=== PATIENT | female | born 1980 | race Caucasian/White ===

== ENCOUNTER → 2018-11-10 08:57 | Outpatient (CLI) | payer MEDICARE, SELFPAY | PROVIDERS: Family Provider Family Medicine; PCP Family Medicine; Visit Provider Family Medicine | DX: Z12.4 Encounter for screening for malignant neoplasm of cervix (principal) ==

== ENCOUNTER → 2018-11-16 07:30 | Outpatient (CLI) | payer MEDICARE, SELFPAY ==
[2017-08-04 22:16] VITALS: BMI 34.0
== END ==
PROVIDERS: Family Provider Family Medicine; PCP Family Medicine; Referring Provider Family Medicine; Visit Provider Family Medicine
DX: Z20.9 Contact with and (suspected) exposure to unspecified communicable disease (principal); Z20.2 Contact with and (suspected) exposure to infections with a predominantly sexual mode of transmission; Z76.89 Persons encountering health services in other specified circumstances

== ENCOUNTER → 2019-11-09 10:23 | Outpatient (CLI) | payer MEDICARE, MEDICAID, SELFPAY ==
[2019-02-03 10:11] VITALS: BMI 45.9
[2019-11-09 11:02] LABS: Absolute Lymphocyte Count 1.73 X10^3/uL (0.83-4.51); Absolute Neutrophil Count 4.2 X10^3/uL (2.0-7.7); Basophil# 0.03 X10^3/uL; Basophil% 0.5 % (0-1); Eosinophil# 0.16 X10^3/uL; Eosinophils% 2.4 % (0-5); Hematocrit 42.4 % (37-47); Lymphocyte # 1.73 X10^3/ul (4.0); Lymphocyte % 26.3 % (19-41); Mean Corp Hgb Conc 30.7 g/dL (32-36); Mean Corpuscular Hgb 25.5 pg (27.0-32.0); Mean Corpuscular Volume 83.3 fL (81-99); Mean Platelet Vol. 11.4 fl (6.2-12.0); Monocyte# 0.47 X10^3/uL; Monocyte% 7.2 % (0-10); NRBC Flagged by Analyzer 0 % (0-5); Neutrophil # 4.16 X10^3/uL (2.7-7.7); Neutrophil % 63.3 % (47-70); Platelet Count 258 K/mm3 (150-450); RBC Distribution Width CV 15.3 % (11.6-14.6); RBC Distribution Width SD 46.4 fl (35.1-43.9); Red Blood Count 5.09 M/mm3 (4.2-5.4); White Blood Count 6.6 K/mm3 (4.4-11.0)
[2019-11-09 11:25] LABS: Vitamin B12 336 pg/mL (211-911); Vitamin D,25 Hydroxy 10.6 ng/mL (29.95-100.01)
[2019-11-09 11:28] LABS: AST(SGOT) 25 U/L (15-37); Alanine Aminotransfer ALT/SGPT 45 U/L (13-56); Albumin, Serum 3.8 g/dL (3.2-5.0); Alkaline Phosphatase 83 U/L (45-117); Anion Gap 5 (5-15); BUN 5 mg/dL (7-18); BUN/Creat Ratio 5.9 RATIO (10-20); Calcium,Total 8.7 mg/dL (8.5-10.1); Chloride 108 mmol/L (98-107); Cholesterol 197 mg/dL (200); Creatinine, Serum 0.84 mg/dL (0.55-1.02); EST Glomerular Filtration Rate 80 mL/min (>60); Est Glom Filt Rate - Afr Amer 97 mL/min (>60); Ferritin 13 ng/mL (8-252); Free T3 2.8 pg/mL (2.18-3.98); Globulin 3.8 g/dL (2.2-4.2); Glucose 107 mg/dL (74-106); High Density Lipoprotein 46 mg/dL; Iron 57 ug/dL (50-170); Potassium 3.8 mmol/L (3.5-5.1); Protein, Total 7.6 g/dL (6.4-8.2); Sodium Level 140 mmol/L (136-145); T4 Free Direct 0.75 ng/dL (0.76-1.46); Thyroid Stim Hormone (TSH) 0.65 uIU/mL (0.358-3.74); Triglycerides 79 mg/dL; Very Low Density Lipoprotein 16 mg/dL (5-40)
== END ==
PROVIDERS: PCP Family Medicine; Referring Provider Family Medicine; Visit Provider Family Medicine
DX: E78.5 Hyperlipidemia, unspecified (principal); R53.83 Other fatigue; E61.1 Iron deficiency; E55.9 Vitamin D deficiency, unspecified; G62.9 Polyneuropathy, unspecified; E53.8 Deficiency of other specified B group vitamins; Z51.81 Encounter for therapeutic drug level monitoring
CPT/HCPCS: 36415; 80053; 80061; 82306; 82607; 82728; 83540; 84439; 84443; 84481; 85025

== ENCOUNTER → 2020-05-22 09:34 | Outpatient (CLI) | payer MEDICARE, MEDICAID, SELFPAY ==
[2020-05-22 08:29] VITALS: BMI 45.9
[2020-05-22 10:35] LABS: Absolute Neutrophil Count 3.3 X10^3/uL (2.0-7.7); Basophil# 0.04 X10^3/uL; Basophil% 0.6 % (0-1); Eosinophil# 0.15 X10^3/uL; Eosinophils% 2.4 % (0-5); Hematocrit 39.3 % (37-47); Mean Corp Hgb Conc 30.5 g/dL (32-36); Mean Corpuscular Hgb 25.8 pg (27.0-32.0); Mean Corpuscular Volume 84.5 fL (81-99); Mean Platelet Vol. 11.9 fl (6.2-12.0); Monocyte# 0.42 X10^3/uL; Monocyte% 6.8 % (0-10); NRBC Flagged by Analyzer 0 % (0-5); Neutrophil # 3.29 X10^3/uL (2.7-7.7); Platelet Count 250 K/mm3 (150-450); RBC Distribution Width CV 15.3 % (11.6-14.6); RBC Distribution Width SD 46.5 fl (35.1-43.9); Red Blood Count 4.65 M/mm3 (4.2-5.4); White Blood Count 6.2 K/mm3 (4.4-11.0)
[2020-05-22 11:15] LABS: Hemoglobin A1c 5.3 % (3.8-5.6)
[2020-05-22 11:25] LABS: AST(SGOT) 11 U/L (15-37); Alanine Aminotransfer ALT/SGPT 19 U/L (13-56); Albumin, Serum 3.7 g/dL (3.2-5.0); Alkaline Phosphatase 84 U/L (45-117); Anion Gap 5 (5-15); BUN 11 mg/dL (7-18); BUN/Creat Ratio 14.8 RATIO (10-20); Calcium,Total 8.8 mg/dL (8.5-10.1); Chloride 109 mmol/L (98-107); Creatinine, Serum 0.74 mg/dL (0.55-1.02); EST Glomerular Filtration Rate 92 mL/min (>60); Est Glom Filt Rate - Afr Amer 112 mL/min (>60); Follicle Stimulating Hormone 6.9 mIU/mL; Globulin 3.6 g/dL (2.2-4.2); Glucose 92 mg/dL (74-106); Potassium 3.5 mmol/L (3.5-5.1); Protein, Total 7.3 g/dL (6.4-8.2); Sodium Level 142 mmol/L (136-145); Thyroid Stim Hormone (TSH) 2.18 uIU/mL (0.358-3.74)
[2020-05-30 18:16] LABS: HPV APTIMA, High Risk Positive (Negative)
== END ==
PROVIDERS: PCP Family Medicine; Referring Provider Obstetrics & Gynecology; Visit Provider Obstetrics & Gynecology
DX: N94.6 Dysmenorrhea, unspecified (principal); B37.3 Candidiasis of vulva and vagina; Z12.4 Encounter for screening for malignant neoplasm of cervix; N94.10 Unspecified dyspareunia
CPT/HCPCS: 36415; 80053; 82670; 83001; 83036; 84443; 85025; 87070; 87205; 87624; 88175; G0145

== ENCOUNTER → 2020-06-02 14:14 | Outpatient (CLI) | payer MEDICARE, MEDICAID, SELFPAY ==
[2020-05-22 08:29] VITALS: BMI 45.9
--- NOTE | 2020-06-02 14:15 | US_ITS ---
STUDY: ULTRASOUND OF THE FEMALE PELVIS - COMPLETE REASON FOR EXAM: Female, 40 years old. Dysmenorrhea TECHNIQUE: Transabdominal and Transvaginal TECHNICAL QUALITY: Adequate. COMPARISON: None. FINDINGS: The uterus is anteverted and is in a midline position. The uterus measures 10.4 x 4.1 x 1.0 cm. There is a 1.8 x 1.5 cm nabothian cyst in the cervix. The endometrium measures 10 mm in thickness, and is hyperechoic. There is no demonstrated endometrial mass. There is no demonstrated myometrial mass. The right ovary is visualized. The right ovary measures 3.4 x 3.4 x 2.3 cm. There are physiologic follicles in the right ovary. There is no right ovarian cyst or ovarian mass. There is no visualized right adnexal mass or complex lesion. There is normal vascularity. The left ovary is not visualized. There is no fluid in the cul-de-sac. US/Transvaginal Non- IMPRESSION: Thickened endometrium which is likely due to cyclic change. Nabothian cyst in the cervix. Normal right ovary with normal vascularity. Left ovary not visualized. Electronically Signed: Neymar Benitez, at 19:48 EDT Tel , Service support ,
--- NOTE | 2020-06-02 14:15 | US_ITS ---
STUDY: ULTRASOUND OF THE FEMALE PELVIS - COMPLETE REASON FOR EXAM: Female, 40 years old. Dysmenorrhea TECHNIQUE: Transabdominal and Transvaginal TECHNICAL QUALITY: Adequate. COMPARISON: None. FINDINGS: The uterus is anteverted and is in a midline position. The uterus measures 10.4 x 4.1 x 1.0 cm. There is a 1.8 x 1.5 cm nabothian cyst in the cervix. The endometrium measures 10 mm in thickness, and is hyperechoic. There is no demonstrated endometrial mass. There is no demonstrated myometrial mass. The right ovary is visualized. The right ovary measures 3.4 x 3.4 x 2.3 cm. There are physiologic follicles in the right ovary. There is no right ovarian cyst or ovarian mass. There is no visualized right adnexal mass or complex lesion. There is normal vascularity. The left ovary is not visualized. There is no fluid in the cul-de-sac. US/Pelvic (Non ) IMPRESSION: Thickened endometrium which is likely due to cyclic change. Nabothian cyst in the cervix. Normal right ovary with normal vascularity. Left ovary not visualized. Electronically Signed: Neymar Benitez, at 19:48 EDT Tel , Service support ,
== END ==
PROVIDERS: PCP Family Medicine; Referring Provider Obstetrics & Gynecology; Visit Provider Obstetrics & Gynecology
DX: N94.6 Dysmenorrhea, unspecified (principal); N94.10 Unspecified dyspareunia; N88.8 Other specified noninflammatory disorders of cervix uteri
CPT/HCPCS: 76830; 76856

== ENCOUNTER → 2020-06-06 | Outpatient (CLI) | payer MEDICARE, MEDICAID, SELFPAY ==
--- NOTE | 2020-06-06 | IMM_PTH ---
PATIENT: NITO WILDER LOC: [facility] U#:[id number] AGE/SX: 40/F ROOM: RE06/06/[address]: Dr. Tatiana Hairston MD : 1980 BED: DIS: 06/06/2020 SPEC #: [id number] RECD: 06/08/20 12:17 STATUS: ADAMARIS LUBNA #: [id number] TITA: 06/06/20 00:[address]: Tatiana Hairston DEPT: IMMUNOHISTOCHEMISTRY RECD BY: Carrie Grewal Tissues: A - Uterine cervix, NOS B - Endocervical Procedures: p16 (initial) KI-67 (add) PHYSICIAN & [place] [id number] SPECIMEN INFORMATION: Tissue Source: A - Cervical, B - ECC Clinical Info: HGSIL, abnormal uterine bleeding Specimen Number: [id number] A & B CPT code: 54320 x2, 77367 x2 METHODOLOGY: Deparaffinized sections of prefer/formalin-fixed tissue or PAP/DQ stained slides are incubated with monoclonal/polyclonal antibodies/oligonucleotide probes. Localization is made via biotin free immunoperoxidase method. Appropriate controls are performed and reacted as expected. Results on target cell population are indicated in the following table: RESULTS: ANTIBODY / CLONE RESULT Block A P16 (E6H4) positive, block staining Ki-67 (30-9) positive, moderate to high Block B P16 (E6H4) positive, block staining Ki-67 (30-9) positive, moderate to high These tests were developed and their performance characteristics determined by [facility]. They may not have been cleared or approved by the U.S. Food and Drug Administration. The FDA has determined that such clearance or approval is not necessary. The above immunohistochemical/dualISH markers are ordered and reviewed by the Pathologist. INTERPRETATION: A. Cervix, biopsy: Moderate to severe squamous dysplasia. B. ECC: Fragments of squamous epithelium with moderate to severe squamous dysplasia. SJ:donte 06/09/20
--- NOTE | 2020-06-06 | CER_PTH ---
PATIENT: NITO WILEDR LOC: [facility]#:[id number] AGE/SX: 40/F ROOM: RE06/06/[address]: Dr. Tatiana Hairston MD : 1980 BED: DIS: 06/06/2020 SPEC #: [id number] RECD: 06/06/20 16:39 STATUS: ADAMARIS CALVO #: [id number] TITA: 06/06/20 00:[address]: Tatiana Hairston DEPT: SURGICAL PATHOLOGY RECD BY: Ousmane Lyman Tissues: A - Uterine cervix, NOS B - Endocervical C - Endometrial cavity Procedures: Surgery Specimen Level IV HEADER OPERATION: Colposcopy, endometrial biopsy PRE-OP DIAGNOSIS: HGSIL, abnormal uterine bleeding TISSUE SUBMITTED: A - Cervical, B - ECC, C - Endometrial biopsy MICROSCOPIC DIAGNOSIS A. Cervical biopsy: Moderate to severe squamous dysplasia with HPV changes (HGSIL and NANDO II-III). Chronic inflammation. See comment. B. ECC: Fragment of squamous epithelium with moderate to severe squamous dysplasia with HPV changes (HGSIL and NANDO II-III). Fragments of benign endocervical mucosa with chronic inflammation and mucous. See comment. C. Endometrial biopsy: Secretory endometrium. Fragments of benign endocervical epithelium. SJ:rg 06/08/20 COMMENT A & B. Immunohistochemistry ([id number]) for surrogate HPV marker (p16) supports the above diagnosis. Case has been reviewed in consultation with Dr. Orellana who concurs with the above diagnosis. IDC:AM MICROSCOPIC DESCRIPTION Slides are reviewed. GROSS DESCRIPTION A - Received in fixative is one container labeled with the patient's name and designated cervical biopsy. The specimen consists of one irregular fragment of light peoples soft tissue that measures 0.3 x 0.3 x 0.1 cm. The specimen is totally submitted in one cassette. B - Received in fixative is one container labeled with the patient's name and designated ECC. The specimen consists of multiple irregular fragments of peoples-pink mucoid tissue that in aggregate measure 1.5 x 0.5 x 0.1 cm. The specimen is totally submitted in one cassette. C - Received in fixative is one container labeled with the patient's name and designated EMB. The specimen consists of multiple irregular fragments of peoples-pink soft tissue that in aggregate measure 2.5 x 1.5 x 0.2 cm. The specimen is totally submitted in one cassette. / SJ:rg 06/07/20 TC:5 CPT: 52645 x3
[2020-06-06 14:39] VITALS: BMI 48.4
== END | disposition home or self-care (01) ==
PROVIDERS: Visit Provider Obstetrics & Gynecology
DX: R87.613 High grade squamous intraepithelial lesion on cytologic smear of cervix (HGSIL) (principal); N93.9 Abnormal uterine and vaginal bleeding, unspecified
CPT/HCPCS: 88305; 88341; 88342

== ENCOUNTER 2020-09-12 05:16 | Day surgery (SDC) | payer MEDICARE, MEDICAID, SELFPAY ==
[2020-06-06 14:39] VITALS: BMI 48.4
[2020-08-28 08:41] VITALS: BMI 47.9
[2020-09-04 15:46] LABS: Hematocrit 40.3 % (37-47); Hemoglobin 12.2 g/dL (12.0-15.0); Mean Corp Hgb Conc 30.3 g/dL (32-36); Mean Corpuscular Hgb 25.6 pg (27.0-32.0); Mean Corpuscular Volume 84.5 fL (81-99); Mean Platelet Vol. 11.8 fl (6.2-12.0); Platelet Count 259 K/mm3 (150-450); RBC Distribution Width CV 14.5 % (11.6-14.6); RBC Distribution Width SD 44.1 fl (35.1-43.9); Red Blood Count 4.77 M/mm3 (4.2-5.4); White Blood Count 7.4 K/mm3 (4.4-11.0)
[2020-09-04 16:07] LABS: Magnesium 2.1 mg/dL (1.6-2.6)
[2020-09-12] VITALS (18 sets, daily range): BP systolic 106–151; BP diastolic 57–81; PULSE 71–100; RESP 16–18; TEMP 36.2–37.1; O2SAT 90–97; BMI 50.3
--- NOTE | 2020-09-12 | IMM_PTH ---
PATIENT: KELLY WILDER [place] [facility] [place][id number] AGE/SX: 40/F ROOM: RE09/12/[address]: Dr. Tatiana Hairston MD : 1980 BED: DIS: 09/13/2020 SPEC #: [id number] RECD: 09/13/20 13:54 STATUS: ADAMARIS REQ #: [id number] TITA: 09/12/20 00:[address]: Ttaiana Hairston DEPT: IMMUNOHISTOCHEMISTRY RECD BY: Carrie Grewal ENTERED: 09/13/20 13:55 SP TYPE: IMMUNO OTHR DR: MD Dr. Kelly Moss DO Tissues: Uterus, NOS Procedures: KI-67 (add) P16 (add) KI-67 (initial) PHYSICIAN & INSTITUTION [place] [id number] SPECIMEN INFORMATION: Tissue Source: Uterus Clinical Info: NANDO III, severe dysplasia, dysmenorrhea, dyspareunia Specimen Number: [id number] #5 & 8 CPT code: 56314, 85212 x3 METHODOLOGY: Deparaffinized sections of prefer/formalin-fixed tissue or PAP/DQ stained slides are incubated with monoclonal/polyclonal antibodies/oligonucleotide probes. Localization is made via biotin free immunoperoxidase method. Appropriate controls are performed and reacted as expected. Results on target cell population are indicated in the following table: RESULTS: ANTIBODY / CLONE RESULT Block 5 P16 (E6H4) positive, block staining Ki-67 (30-9) positive, high Block 8 P16 (E6H4) positive, block staining Ki-67 (30-9) positive, high These tests were developed and their performance characteristics determined by [facility]. They may not have been cleared or approved by the U.S. Food and Drug Administration. The FDA has determined that such clearance or approval is not necessary. The above immunohistochemical/dualISH markers are ordered and reviewed by the Pathologist. INTERPRETATION: Uterus, vaginal hysterectomy: Moderate to severe squamous dysplasia. SJ:donte 09/14/20
[2020-09-12 06:05] LABS: Internal QC Validated? YES +Cl - CLEAR BKGD; Pregnancy, Urine Negative Negative
[2020-09-12] MEDS: Acetaminophen 500 MG Tablet 1000 MG PO ×4 (06:22→23:41)
[2020-09-12] MEDS: Scopolamine 1mg/72hr Patch 1 PATCH TD (06:22)
[2020-09-12] MEDS: dexAMETHasone 10 MG/ML Vial 8 MG IV (06:23)
[2020-09-12] MEDS: Enoxaparin 40 MG/0.4 ML Syringe SC (06:23)
[2020-09-12] MEDS: Lactated Ringers 1,000 ML 40 ML IV (06:24)
[2020-09-12 06:31] LABS: Bedside Glucose 139 mg/dL (70-110)
--- NOTE | 2020-09-12 06:41 | SUR.PREOP ---
PT TOOK 300 GABAPENTIN AT HOME AT [address] EDMONDSON BEFORE GIVING 600 MG.
--- NOTE | 2020-09-12 07:25 | HP.PCM_ITS ---
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 may need PFPT (4) Mixed incontinence Status: Acute Comment: urogyn consult, no intervention at this time. (5) Recurrent candidiasis of vagina Status: Acute Comment: 6 months of diflucan treatment ordered. 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 Is patient in pain?: No Allergies naproxen Adverse Reaction (Verified 08/28/20 08:42) Upset Stomach Medications ALPRAZolam [Xanax] 0.5 mg PO DAILY 08/04/17 [History Confirmed 08/28/20] Quetiapine Fumarate [Seroquel] 50 mg PO QHS 08/04/17 [History Confirmed 08/28/20] cyclobenzaprine 10 mg tablet 10 mg PO TID PRN #30 tab 05/22/20 [Rx Confirmed 08/28/20] desogestrel 0.15 mg-ethinyl estradiol 0.03 mg tablet 1 tab PO QDAY #28 tab 05/22/20 [Rx Confirmed 08/28/20] gabapentin 400 mg capsule 400 mg PO BID 05/22/20 [History Confirmed 08/28/20] hydrocortisone 2.5 % topical ointment 1 applic TOPICAL BID #28.35 g 05/22/20 [Rx Confirmed 08/28/20] Post menopausal: No Patient : No : No [facility] Medical History Cervical cancer (Acute) HPV (human papilloma virus) infection (Acute) PTSD (post-traumatic stress disorder) (Acute) Recent surgical procedure on lower extremity (Acute) Surgical History H/O LEEP (Acute) Family History Grandfather Lung cancer Grandmother Stomach cancer Mother Cervical cancer Social History (Updated 08/28/20 @ 09:[address] 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 Date Name GA/Weeks Outcome Route Bth Weight Infant Gen [facility] FOB Unknown Safia Curry 09/27/00 Rolf Wilder 12/15/01 Daytonilia Jose 01/27/14 Angi ROS Const Constitutional: Denies fatigue, night sweats, weight gain or weight loss ENT ENT: Reports system reviewed and no additional complaints, except as docu, disequilibrium and dizziness Cardio Card: Denies chest pain Resp Resp: Denies cough or dyspnea GI GI: Reports as per HPI; denies constipation, nausea or vomiting : Reports as per HPI, urinary frequency, urinary incontinence (mixed), urinary urgency, vaginal discharge, vaginal dryness and vaginal itching; denies nipple discharge or vaginal odor Musc Musc: Denies joint pain, back pain or muscle weakness Skin Skin/Breast: Denies nipple discharge Neuro Neuro: Reports dizziness Psych Psych: Reports system reviewed and no additional complaints, except as docu Endo Endo: Denies cold intolerance, excessive sweating, heat intolerance or increased thirst Misael/Lymph Hematologic/Lymphatic: Denies easy bleeding, Denies easy bruising, Denies enlarged lymph nodes Exam Const General: cooperative, healthy appearing, comfortable, no acute distress, well developed Orientation: alert HENMT Head: normal to inspection, normocephalic Ears: hearing grossly normal bilaterally, external ears normal Nose: external nose normal, nares normal Face and sinus: normal facial exam Neck Neck: normal visual inspection, no lymphadenopathy Thyroid: thyroid normal Chest Chest palpation & inspection: normal inspection of the chest Resp Effort & Inspection: normal respiratory effort Auscultation: clear to auscultation bilaterally Cardio Rate: regular rate Rhythm: regular rhythm Heart Sounds: S1 normal, S2 normal GI Inspection: normal to inspection, non-distended Palpation: soft, no hepatosplenomegaly General: bladder normal to palpation External Female Exam: normal external appearance, normal appearance of the urethra Urethra: normal appearance of the urethra Speculum Exam - Vagina: normal appearance of the vagina, normal vaginal discharge Speculum Exam - Cervix: normal appearance of the cervix, nontender Bimanual Exam- Vagina & Uterus: bladder normal to palpation, No cervical tenderness Bimanual Exam- Adnexa, other: normal adnexae, adnexae mobile, no adnexal masses, pelvic support normal Pelvic Support: normal Musc Other: gross motor intact no deficits, full bilateral strength Skin General: no rashes or lesions noted Neuro General: alert, awake, moves all extremities, no focal motor deficits Motor: muscle tone normal throughout Extrem General: normal to inspection, no pedal edema Psych Appearance: grossly normal Mental Status: mental status grossly normal Affect: normal affect Speech and Movement: speech and movement normal Assessment & Plan Problems 1. 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 I have discussed with the patient the risks, benefits, and alternatives of the procedure which include but are not limited to risks of anesthesia, bleeding, infection, possible damage to bowel, bladder, or surrounding vasculature which could lead to additional surgery to evaluate any complications. Patient agrees to procedure and wishes to proceed. ACOG/uptodate references given for additional information regarding procedure. Coding Level of Care Code No Charge Diagnoses NANDO III (cervical intraepithelial neoplasia grade III) with severe dysplasia D06.9 UPDATE- I have seen the patient and performed any clinically relevant updates to the history and physical exam. Tatiana Hairston MD
[2020-09-12] MEDS: Gabapentin 300 MG Capsule PO (07:26)
[2020-09-12] MEDS: Cefazolin 2 GM in 0.9% Normal Saline 100 ML IV (07:30)
--- NOTE | 2020-09-12 07:30 | HYST_PTH ---
PATIENT: KELLY WILDER LOC: [facility] [place] U#:[id number] AGE/SX: 40/F ROOM: RE09/12/[address]: Dr. Tatiana Hairston MD : 1980 BED: DIS: 09/13/2020 SPEC #: [id number] RECD: 09/12/20 10:11 STATUS: ADAMARIS LUBNA #: [id number] TITA: 09/12/20 07:[address]: Tatiana Hairston DEPT: SURGICAL PATHOLOGY RECD BY: Roro Lam ENTERED: 09/12/20 11:49 SP TYPE: HYSTERECT OTHR DR: MD Dr. Kelly Moss DO Tissues: Uterus, NOS Procedures: Surgery Specimen Level V HEADER OPERATION: ERAS, vaginal hysterectomy, salpingectomy PRE-OP DIAGNOSIS: NANDO III with severe dysplasia; dysmenorrhea; dyspareunia; mixed incontinence; recurrent candidiasis of vagina TISSUE SUBMITTED: Uterus, partial right oophorectomy as per OR report MICROSCOPIC DIAGNOSIS Uterus, right ovary and right fallopian tube, vaginal hysterectomy, right partial salpingectomy and right oophorectomy: Cervix - mild, moderate and severe squamous dysplasia (HGSIL and NANDO I-III), see comment. Dysplastic changes also involving endocervical glands. Resection margins are free of dysplastic changes. Endometrium - early secretory endometrium. Myometrium - an intramural leiomyoma (1.5 cm in greatest dimension). - Focal adenomyosis. Right ovary - physiologic follicular and corpus luteal cysts. See comment. SJ:donte 09/13/20 COMMENT The dysplastic changes involve all four cervical quadrants. Immunohistochemistry ([id number]) for surrogate HPV marker (p16) supports the above diagnosis. Fallopian tube tissue is not identified in the specimen or in the container. Detached pieces of tissue consists of ovarian tissue with corpus luteum cyst. Please make reference to previous specimen ([id number]) cervical biopsy with diagnosis of moderate to severe squamous dysplasia with HPV changes and ECC with diagnosis of fragments of squamous epithelium with moderate to severe squamous dysplasia with HPV changes. MICROSCOPIC DESCRIPTION Slides are reviewed. GROSS DESCRIPTION Received in fixative is one container labeled with the patient's name and designated uterus, right fallopian tube and right ovary. The specimen consists of a hysterectomy specimen consisting of uterus with cervix, detached ovary identified as right ovary and detached pieces of soft tissue. Fallopian tube is not identified in the container or in the specimen. The uterus with cervix weighs 113 gm and measures 9.5 x 6 x 4 cm. The serosal surface is focally ragged. The ectocervical mucosa is unremarkable. The external os is circular in contour. The resection margin of cervix is inked black. The endocervical canal measures 2.5 cm in length and the endocervical mucosa is unremarkable. Sections of the cervix reveal multiple cysts filled with mucoid material. The endometrial cavity measures 5 cm in length and up to 3 cm in width. The endometrium is peoples, glistening without any mass lesions and measures 0.1 cm in thickness. Sections of the uterine wall reveal a peoples, nodular mass measuring 1.5 cm in greatest dimension. The uterine wall measures up to 2 cm in thickness. The right ovary is disrupted and measures 2.5 x 2 x 1.5 cm. Sections reveal a hemorrhagic cyst measuring 1.5 cm in greatest dimension. The two detached pieces of tissue measure in aggregate 3 x 1 x 0.2 cm. Noteman sections are submitted in 15 cassettes as follows: 1-8 - cervix like LEEP conization (1 & 2 - 12 to 3 o'clock, 3 & 4 - 3 to 6 o'clock, 5 & 6 - 6 to 9 o'clock, 7 & 8 - 9 to 12 o'clock), 9 & 10 - anterior uterine wall, 11 & 12 - posterior uterine wall, 12 - nodular mass, 14 - right ovary, 15 - detached pieces of tissue, entirely submitted. / FRANNY:donte 09/12/20 TC:5 CPT: 91961
--- NOTE | 2020-09-12 07:42 | PCM.OPRPT ---
Problem List (1) Mixed incontinence Status: Acute Comment: urogyn consult, no intervention at this time. (2) Stress incontinence Status: Acute Report of Operation Date of Procedure: 09/12/20 Pre-Operative Diagnosis: stress incontinence, mixed incontinence Post-Operative Diagnosis: same Surgery/Procedure Performed:: midurethral sling, cystoscopy with bilateral ureteral catheterization Type of Anesthesia:: General Estimated Blood Loss (mL): 250cc tota Description of Procedure: Patient is a 40-year-old female undergoing a vaginal hysterectomy and mid urethral sling insertion after being evaluated for incontinence. Informed consent was obtained. Patient was taken to the operating room placed on the operating room table. Anesthesia monitored the head, neck, airway, IV access and vital signs throughout the case. Once anesthesia was approval administered the patient was placed into dorsal lithotomy and Trendelenburg position was prepped and draped in usual sterile fashion. A Noonan catheter was inserted through the urethra. Dr. Hairston performed her portion of the case and turned the patient over to ms. The mid urethra was identified and injected submucosally with vasopressin for hydrostatic dissection and hemostatic control. A midline vertical 2 cm incision was made. Sharp and blunt dissection was performed on either side of the urethra with care being taken to avoid entrance into the vaginal mucosa or the urethra. At this time, the trochars were used to insert the Altis mid urethral sling into the obturator complexes bilaterally. The sling lay flat against the urethra in good position. The tensioning suture was cut. The incision was closed using running interlocking 2-0 Vicryl. The Noonan catheter was removed and a cystourethroscopy was performed under direct visualization through the urethra. The bladder mucosa in its entirety in addition to the urethral mucosa were visualized directly. There were no injuries, foreign body or areas of hemorrhage identified. At this time a 5 Turkish whistle-tip catheter was used to gently cannulate each ureteral orifice and inserted to 25 cm. There is no evidence of injury, obstruction to either ureter. At this time the cystoscope was removed and the Noonan catheter was replaced. The patient was then awakened and taken to the recovery room in good condition. There were no complications during this procedure. Grafts/Implants Used: Altis midurethral sling - Complications none - Admit VTE Documentation VTE Present on Admission: Yes VTE Mechan Device Prophylaxis: SCD's VTE Pharm Prophylaxis ordered?: Yes
[2020-09-12] MEDS: Vasopressin 20 UNITS/ML Vial (08:00)
[2020-09-12] MEDS: Lactated Ringers 1,000 ML 70 ML IV ×2 (09:30→13:19)
--- NOTE | 2020-09-12 09:33 | PCM.DC.URO ---
Discharge Diet: No Restrictions Discharge Activity: May not drive while taking narcotic pain medications., May Shower - No tub bathing, no hot tubs, no swimming, no sexual activity, no strenuous activity, no exercise, no lifting over 5 pounds, no vacuuming May resume sexual activity in: 6-8 weeks Call your doctor if your incision/area has: Continuous Slow Oozing, Sudden Increased Bleeding, Increased Pain/ Swelling, Increased Redness, Foul Smelling Discharge Call your doctor if you observe: Fever of 101 or Higher, Inability to urinate, Inability to have a bowel movement, Calf discomfort, Uncontrolled pain Allergies/Adverse Reactions: Allergies naproxen Adverse Reaction (Verified 09/12/20 05:39) Upset Stomach Medications to take at Discharge ALPRAZolam [Xanax] 0.5 mg PO DAILY 08/04/17 Quetiapine Fumarate [Seroquel] 50 mg PO QHS 08/04/17 gabapentin 400 mg capsule 400 mg PO BID 05/22/20 Cephalexin [Keflex] 500 mg PO Q12 3 Days #6 cap 09/12/20 The following prescriptions were given: Cephalexin [Keflex] 500 mg PO Q12 3 Days #6 cap Transmission Status: Pending to [id number] Primary Care Physician: Kelly Majano DO [Primary Care Provider] - Test Results: Test results from this visit will be discussed in further detail at your follow-up appointment, if applicable. Please Follow Up With: Mary Anne Aragon MD When: call office for appt Proposed Discharge Date: 09/13/20
--- NOTE | 2020-09-12 10:07 | OP.PCM_ITS ---
Problem List (1) NANDO III (cervical intraepithelial neoplasia grade III) with severe dysplasia Status: Acute Comment: recurrent recommend hysterectomy, TVH BS plan SDS (2) Dysmenorrhea Status: Acute Comment: start with OCP (3) Dyspareunia Status: Acute Comment: start with OCP, may be vulvar in origin also. may need PFPT (4) Mixed incontinence Status: Acute Comment: urogyn consult, no intervention at this time. (5) Recurrent candidiasis of vagina Status: Acute Comment: 6 months of diflucan treatment ordered. Report of Operation Date of Procedure: 09/12/20 Pre-Operative Diagnosis: aub NANDO III Post-Operative Diagnosis: same Surgery/Procedure Performed:: TVH RS partial right oophorectomy Description of Surgical Findings:: right large ovary with cysts, limited vaginal access due to morbid obesity, enlarged uterus with suspected adenomyosis, nl left tube and ovary. pelvic congestion. Type of Anesthesia:: General Special Medications: none Specimen's removed: uterus right tube and partial ovary Drains: ontiveros Estimated Blood Loss (mL): 200 Fluids Replaced: crystalloid Description of Procedure: . Patient was taken to the operating room and was placed under general anesthesia was prepped and draped in normal sterile fashion in the dorsal lithotomy position. Preoperative antibiotics and SCDs and Ontiveros catheter was placed inside the bladder. Weighted speculum was placed in the vagina and the anterior and posterior lip of the cervix was grasped with 2 Diogenes clamps and circumferentially injected with dilute vasopressin. A circumferential incision was made with a scalpel and the posterior cul-de-sac was entered into sharply and a longneck speculum was placed. The anterior cul-de-sac was also dissected down and entered into sharply and the uterosacral ligaments were clamped cut and suture ligated bilaterally followed by the cardinal ligaments which were Clamped cut and suture ligated bilaterally with 0 Monocryl. The uterus serially descended and progressive bites were taken bilaterally up to the level of the utero-ovarian ligament bilaterally which was clamped transected and double l igated with 0 Monocryl suture and 0 Vicryl free tie. The initial tie on the left utero-ovarian ligament was noted to be loose and therefore this was oversewn with several Monocryl and Vicryl stitches to obtain hemostasis. Due to the fallopian tube being a part of one of the hemostasis stitches it was not removed due to risk of bleeding. the right ovary was noted to be enlarged with a cyst which was opened and noted to be friable therefore part of the ovary was removed with a partial oophorectomy and right salpingectomy. Additional sutures were used to obtain hemostasis over the area of the right ovary and tube. Bovie was used for cautery excellent hemostasis was noted. Posterior peritoneum was reapproximated with 0 Vicryl. The vagina was closed with [id number] 0 Vicryl pop offs including the posterior and anterior peritoneum in the reapproximation. Excellent hemostasis was noted. All instruments removed from the vagina and then see additional operative report for additional operative information. Grafts/Implants Used: see jannie note - Complications none - Admit VTE Documentation VTE Present on Admission: No VTE Mechan Device Prophylaxis: SCD's VTE Pharm Prophylaxis ordered?: Yes Multi Select Codes - Urinary/Genital Urinary/Genital CPT Codes: 91992 TVH+BS/O <250gr uterus
--- NOTE | 2020-09-12 10:13 | PCM.DC.VHY ---
Discharge Diet: No Restrictions Discharge Activity: May not drive while taking narcotic pain medications., May Shower - No tub bathing, no hot tubs, no swimming, no sexual activity, no strenuous activity, no exercise, no lifting over 5 pounds, no vacuuming May resume sexual activity in: 6-8 weeks Call your doctor if your incision/area has: Continuous Slow Oozing, Sudden Increased Bleeding, Increased Pain/ Swelling, Increased Redness, Foul Smelling Discharge Call your doctor if you observe: Fever of 101 or Higher, Inability to urinate, Inability to have a bowel movement, Calf discomfort, Uncontrolled pain Allergies/Adverse Reactions: Allergies naproxen Adverse Reaction (Verified 09/12/20 05:39) Upset Stomach Medications to take at Discharge ALPRAZolam [Xanax] 0.5 mg PO DAILY 08/04/17 Quetiapine Fumarate [Seroquel] 50 mg PO QHS 08/04/17 gabapentin 400 mg capsule 400 mg PO BID 05/22/20 Cephalexin [Keflex] 500 mg PO Q12 3 Days #6 cap 09/12/20 Naproxen [Naprosyn] 250 - 500 mg PO Q8H PRN PRN #30 tab 09/12/20 Oxycodone HCl/Acetaminophen [Percocet 5-325] 1 - 2 tablet PO Q6H PRN PRN 7 Days #15 tablet 09/12/20 The following prescriptions were given: Cephalexin [Keflex] 500 mg PO Q12 3 Days #6 cap Transmission Status: Received by [id number] Naproxen [Naprosyn] 250 - 500 mg PO Q8H PRN PRN #30 tab PRN Reason: MILD PAIN Transmission Status: Pending to [facility] Oxycodone HCl/Acetaminophen [Percocet 5-325] 1 - 2 tablet PO Q6H PRN PRN 7 Days #15 tablet PRN Reason: Pain Transmission Status: Sent to [facility] Primary Care Physician: Kelly Majano DO [Primary Care Provider] - Test Results: Test results from this visit will be discussed in further detail at your follow-up appointment, if applicable. Please Follow Up With: Mary Anne Aragon MD When: call office for appt Proposed Discharge Date: 09/13/20
--- NOTE | 2020-09-12 13:09 | PCS.PANDOC ---
PANDEMIC DOCUMENTATION INITIATED: Date: Time:
[2020-09-12] MEDS: ALPRAZolam 0.5 MG Tablet PO (13:19)
[2020-09-12] MEDS: Docusate Sodium 100 MG Capsule PO ×2 (13:19→20:55)
[2020-09-12] MEDS: Ketorolac 30 MG/ML Syringe IV ×2 (13:19→23:40)
[2020-09-12] MEDS: Gabapentin 400 MG Capsule PO ×2 (13:19→20:54)
[2020-09-12] MEDS: 0.9% Saline Lock 10 ML Syringe IV ×3 (13:20→23:41)
[2020-09-12] MEDS: oxyCODONE 5 MG Tablet PO ×2 (15:01→18:59)
[2020-09-12 15:35] LABS: Absolute Neutrophil Count 8.3 X10^3/uL (2.0-7.7); Basophil# 0.01 X10^3/uL; Basophil% 0.1 % (0-1); Hematocrit 37.2 % (37-47); Hemoglobin 11.1 g/dL (12.0-15.0); Lymphocyte % 10.5 % (19-41); Mean Corp Hgb Conc 29.8 g/dL (32-36); Mean Corpuscular Hgb 25.1 pg (27.0-32.0); Mean Corpuscular Volume 84.2 fL (81-99); Mean Platelet Vol. 11.4 fl (6.2-12.0); Monocyte# 0.13 X10^3/uL; Monocyte% 1.4 % (0-10); NRBC Flagged by Analyzer 0 % (0-5); Neutrophil # 8.34 X10^3/uL (2.7-7.7); Neutrophil % 87.4 % (47-70); Platelet Count 253 K/mm3 (150-450); RBC Distribution Width CV 14.7 % (11.6-14.6); RBC Distribution Width SD 45.1 fl (35.1-43.9); Red Blood Count 4.42 M/mm3 (4.2-5.4); White Blood Count 9.5 K/mm3 (4.4-11.0)
[2020-09-12] MEDS: QUEtiapine 25 MG Tablet 50 MG PO (20:54)
[2020-09-13] MEDS: oxyCODONE 5 MG Tablet PO ×3 (03:30→14:00)
[2020-09-13] MEDS: Lactated Ringers 1,000 ML 70 ML IV (04:20)
[2020-09-13 04:48] VITALS: BP 101/52; PULSE 79; RESP 18; TEMP 36.7; O2SAT 94
[2020-09-13 05:39] LABS: Hematocrit 31.7 % (37-47); Hemoglobin 9.5 g/dL (12.0-15.0); Mean Corpuscular Hgb 25.3 pg (27.0-32.0); Mean Corpuscular Volume 84.5 fL (81-99); Mean Platelet Vol. 11.8 fl (6.2-12.0); Platelet Count 223 K/mm3 (150-450); RBC Distribution Width CV 14.8 % (11.6-14.6); RBC Distribution Width SD 45.9 fl (35.1-43.9); Red Blood Count 3.75 M/mm3 (4.2-5.4); White Blood Count 11.5 K/mm3 (4.4-11.0)
[2020-09-13] MEDS: Ketorolac 30 MG/ML Syringe IV ×2 (06:00→11:50)
[2020-09-13] MEDS: Acetaminophen 500 MG Tablet 1000 MG PO ×2 (06:30→14:00)
[2020-09-13 07:43] VITALS: O2SAT 91
--- NOTE | 2020-09-13 07:47 | PCM.PN.OB ---
Patient Problems: Active and Suspected Problems (Last Reviewed 08/28/20 @ 08:42 by Lucia Mendoza) Stress incontinence (Acute) NANDO III (cervical intraepithelial neoplasia grade III) with severe dysplasia (Acute) recurrent recommend hysterectomy, TVH BS plan SDS Mixed incontinence (Acute) urogyn consult, no intervention at this time. Recurrent candidiasis of vagina (Acute) 6 months of diflucan treatment ordered. Dyspareunia (Acute) start with OCP, may be vulvar in origin also. may need PFPT Dysmenorrhea (Acute) start with OCP Subjective: Pain controlled. Has been up to chair. Denies SOB, CP, fever, chills, calf pain. - Physical Exam Vitals/I&O's: Vital Signs Temp Pulse Resp BP Pulse Ox 98.1 F 79 18 101/52 L 94 09/13/20 04:48 09/13/20 04:48 09/13/20 04:48 09/13/20 04:48 09/13/20 04:48 Oxygen Flow Rate (L/min) 6 Oxygen Delivery Method Room Air Weight: 275 lb 2.19 oz Body Mass Index (BMI) 50.3 Intake and Output for Last 24 Hours 09/11/20 09/12/20 09/13/20 23:59 23:59 23:59 Intake Total 2726.17 / 2726.17 1900 / 1900 Output Total 2575 / 2575 1200 / 1200 Balance 151.17 / 151.17 700 / 700 General: Alert, Oriented x3, Cooperative Abdomen: Soft, Non-Distended, - - Appropriately tender. Microbiology Past 72 Hours 09/11/20 10:20 Interface Orders SARS-CoV-2 Antigen (Rapid) - Final Laboratory Results 09/12/20 15:21: WBC 9.5, RBC 4.42, Hgb 11.1 L, Hct 37.2, MCV 84.2, MCH 25.1 L, MCHC 29.8 L, RDW Std Deviation 45.1 H, RDW Coeff of Chau 14.7 H, Plt Count 253, MPV 11.4, Immature Gran % (Auto) 0.600, Neut % (Auto) 87.4 H, Lymph % (Auto) 10.5 L, Boyd % (Auto) 1.4, Eos % (Auto) 0.0, Baso % (Auto) 0.1, Absolute Neuts (auto) 8.3 H, Absolute Lymphs (auto) 1.00, Nucleated RBC % 0 09/13/20 05:05: WBC 11.5 H, RBC 3.75 L, Hgb 9.5 L, Hct 31.7 L, MCV 84.5, MCH 25.3 L, MCHC 30.0 L, RDW Std Deviation 45.9 H, RDW Coeff of Chau 14.8 H, Plt Count 223, MPV 11.8 Current Medications Acetaminophen (Acetaminophen 500 Mg Tablet) 1,000 mg PO Q6 [facility] Last Admin: 09/13/20 06:30 Dose: 1,000 mg Documented by: Alprazolam (Alprazolam 0.5 Mg Tablet) 0.5 mg PO DAILY [facility] Last Admin: 09/12/20 13:19 Dose: 0.5 mg Documented by: Docusate Sodium (Docusate Sodium 100 Mg Capsule) 100 mg PO BID [facility] Last Admin: 09/12/20 20:55 Dose: 100 mg Documented by: Enoxaparin Sodium (Enoxaparin 40 Mg/0.4 Ml Syringe) 40 mg SC DAILY [facility] Gabapentin (Gabapentin 400 Mg Capsule) 400 mg PO BID [facility] Last Admin: 09/12/20 20:54 Dose: 400 mg Documented by: Lactated Ringer's () 1,000 mls @ 70 mls/hr IV .[id number] [facility] Stop: 09/13/20 12:48 Last Admin: 09/13/20 04:20 Dose: 70 mls/hr Documented by: Sodium Chloride () 250 mls @ 15 mls/hr IV .[id number] PRN PRN Reason: Saline Flush Ketorolac Tromethamine (Ketorolac 30 Mg/Ml Syringe) 30 mg IV Q6 [facility] Stop: 09/13/20 18:01 Last Admin: 09/13/20 06:00 Dose: 30 mg Documented by: Magnesium Chloride (Magnesium Chloride 64 Mg Delay Rel.Tablet) 128 mg PO DAILY PRN PRN PRN Reason: Constipation Nutritional Formula (Lactose Free) (Ensure Enlive 120 Ml Liquid) 120 ml PO TIDCM [facility] Last Admin: 09/12/20 18:59 Dose: 120 ml Documented by: Ondansetron HCl (Ondansetron Odt 4 Mg Tablet) 4 mg PO Q6H PRN PRN PRN Reason: NAUSEA Oxycodone HCl (Oxycodone 5 Mg Tablet) 5 - 10 mg PO Q4H PRN PRN PRN Reason: Pain Score 4-10 Last Admin: 09/13/20 03:30 Dose: 10 mg Documented by: Quetiapine Fumarate (Quetiapine 25 Mg Tablet) 50 mg PO QHS [facility] Last Admin: 09/12/20 20:54 Dose: 50 mg Documented by: Sodium Chloride (0.9% Saline Lock 10 Ml Syringe) 10 - 40 ml IV UD PRN PRN Reason: SALINE FLUSH Last Admin: 09/12/20 23:41 Dose: 10 ml Documented by: Medical Necessity - Tobacco Use Smoking Status: Never smoker Tobacco Use: Non-smoker Assessment/Plan All Active Problems (Last Reviewed 08/28/20 @ 08:42 by Lucia Mendoza) Stress incontinence (Acute) 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 See Dr Aragon's note and orders. Plan home today
--- NOTE | 2020-09-13 07:53 | PCM.PN.BLA ---
Progress Note Awake. Feeling sore but no other complaints. Is ordering breakfast. Vitals are good. Urine clear A/P POD#1 sling, hysterectomy Noonan out Trial of void Home later today STROKE Vital Signs/Narrative: Vital Signs Temp Pulse Resp BP Pulse Ox 09/13/20 04:48 98.1 F 79 18 101/52 L 94
[2020-09-13 09:41] VITALS: BP 127/54; PULSE 93; RESP 18; TEMP 36.7; O2SAT 95
[2020-09-13] MEDS: Enoxaparin 40 MG/0.4 ML Syringe SC (09:51)
[2020-09-13] MEDS: Docusate Sodium 100 MG Capsule PO (09:52)
[2020-09-13] MEDS: Gabapentin 400 MG Capsule PO (09:52)
[2020-09-13] MEDS: ALPRAZolam 0.5 MG Tablet PO (09:52)
[2020-09-13 14:02] VITALS: BP 108/40; PULSE 90; RESP 16; TEMP 36.8; O2SAT 94
== END 2020-09-13 15:55 | disposition home or self-care (01) ==
LOC: SDC 05:17 → AC 05:18 → MS3 09-13 12:39
PROVIDERS: Anesthesiology; Urology; PCP Family Medicine; Referring Provider Obstetrics & Gynecology; Visit Provider Obstetrics & Gynecology
PROC: (CPT 58260; principal; 2020-09-12 07:10)
PROC: 0TJB8ZZ Inspection of Bladder, Via Natural or Artificial Opening Endoscopic (ICD-10-PCS; CPT 57288; 2020-09-12 07:10)
DX: D06.9 Carcinoma in situ of cervix, unspecified (principal); N39.46 Mixed incontinence; D25.1 Intramural leiomyoma of uterus; N80.0 Endometriosis of uterus; N83.11 Corpus luteum cyst of right ovary; R35.1 Nocturia; B37.3 Candidiasis of vulva and vagina; Z20.828 Contact with and (suspected) exposure to other viral communicable diseases; F32.9 Major depressive disorder, single episode, unspecified; F41.9 Anxiety disorder, unspecified; E66.01 Morbid (severe) obesity due to excess calories; Z68.43 Body mass index [BMI] 50.0-59.9, adult; Z79.899 Other long term (current) drug therapy
CPT/HCPCS: 00944; 57288; 58262; 36415; 81025; 82962; 83735; 85025; 85027; 86850; 86900; 86901; 87426; 88307; 88341; 88342; C9803; J7120; A4216; C1758; J2405

== ENCOUNTER → 2021-01-01 13:17 | Outpatient (CLI) | payer MEDICARE, SELFPAY ==
[2020-09-12 06:25] VITALS: BMI 50.3
--- NOTE | 2021-01-01 13:24 | RAD_ITS ---
STUDY: X-RAY - RIGHT ANKLE REASON FOR EXAM: Female, 40 years old. ANKLE PAIN TECHNIQUE: 3 view(s) of the ankle. COMPARISON: None. FINDINGS: Normal visualized distal tibia and fibula. Normal medial and lateral malleoli. Normal tibiotalar articulation and ankle mortise. Normal visualized talus and calcaneus. The visualized subtalar, talonavicular, calcaneocuboid and tarsal articulations are normal. The soft tissue structures are unremarkable. RAD/Ankle min 3 Views IMPRESSION: Normal x-ray examination of the ankle. Electronically Signed: Josué Monae MD (Brooks) at 14:06 EDT , Service support ,
--- NOTE | 2021-01-01 13:24 | RAD_ITS ---
STUDY: X-RAY - RIGHT FOOT CLINICAL: Female, 40 years old. L FOOT PAIN TECHNIQUE: 3 view(s) of the foot. COMPARISON: None. FINDINGS: There is a plantar calcaneal spur. Normal visualized subtalar, talonavicular, calcaneocuboid, tarsal and tarsometatarsal articulations. Normal metatarsi. Normal metatarsophalangeal joint of the great toe. Normal tibial and fibular sesamoid bones. Normal interphalangeal joint of the great toe. Normal phalanges of the great toe. Normal second through fifth metatarsophalangeal joints. Normal interphalangeal joints and phalanges of the lesser toes. The soft tissue structures are unremarkable. RAD/Foot min 3 Views IMPRESSION: No fracture or erosive process. Electronically Signed: Josué Monae MD (Brooks) at 9:11 EDT , Service support ,
== END ==
PROVIDERS: PCP Family Medicine; Referring Provider Family Medicine; Visit Provider Family Medicine
DX: M79.672 Pain in left foot (principal); M25.572 Pain in left ankle and joints of left foot
CPT/HCPCS: 73610; 73630

== ENCOUNTER 2021-10-15 13:11 | Outpatient (CLI) | payer MEDICARE, MEDICAID, SELFPAY ==
[2021-10-15 13:33] LABS: Absolute Lymphocyte Count 1.52 X10^3/uL (0.83-4.51); Basophil# 0.01 X10^3/uL; Basophil% 0.2 % (0-1); Eosinophil# 0.18 X10^3/uL; Eosinophils% 3.5 % (0-5); Hematocrit 40.4 % (37-47); Hemoglobin 12.7 g/dL (12.0-15.0); Lymphocyte # 1.52 X10^3/ul (0.83-4.51); Lymphocyte % 29.9 % (19-41); Mean Corp Hgb Conc 31.4 g/dL (32-36); Mean Corpuscular Volume 82.8 fL (81-99); Mean Platelet Vol. 11.7 fl (6.2-12.0); Monocyte# 0.37 X10^3/uL; Monocyte% 7.3 % (0-10); NRBC Flagged by Analyzer 0 % (0-5); Neutrophil # 2.99 X10^3/uL (2.7-7.7); Neutrophil % 58.7 % (47-70); Platelet Count 219 K/mm3 (150-450); RBC Distribution Width SD 44.9 fl (35.1-43.9); Red Blood Count 4.88 M/mm3 (4.2-5.4); White Blood Count 5.1 K/mm3 (4.4-11.0)
[2021-10-15 13:58] LABS: ALB/GLOB Ratio 1.1 RATIO (0.9-2.4); AST(SGOT) 17 U/L (15-37); Alanine Aminotransfer ALT/SGPT 33 U/L (13-56); Albumin, Serum 3.9 g/dL (3.2-5.0); Alkaline Phosphatase 95 U/L (45-117); Anion Gap 6 (5-15); BUN 9 mg/dL (7-18); BUN/Creat Ratio 11.2 RATIO (10-20); Calcium,Total 8.6 mg/dL (8.5-10.1); Chloride 110 mmol/L (98-107); Cholesterol 198 mg/dL (200); EST Glomerular Filtration Rate 84 mL/min (>60); Est Glom Filt Rate - Afr Amer 102 mL/min (>60); Globulin 3.4 g/dL (2.2-4.2); Glucose 91 mg/dL (74-106); High Density Lipoprotein 38 mg/dL; Potassium 3.7 mmol/L (3.5-5.1); Protein, Total 7.3 g/dL (6.4-8.2); Sodium Level 142 mmol/L (136-145); Triglycerides 127 mg/dL; Very Low Density Lipoprotein 25 mg/dL (5-40)
[2021-10-15 14:04] LABS: Vitamin D,25 Hydroxy 22.8 ng/mL
== END 2021-10-15 23:59 | disposition short-term general hospital (02) ==
LOC: PAVLAB 13:14
PROVIDERS: PCP Family Medicine; Referring Provider Family Medicine; Visit Provider Family Medicine
DX: E78.5 Hyperlipidemia, unspecified (principal); D64.9 Anemia, unspecified; E55.9 Vitamin D deficiency, unspecified; Z51.81 Encounter for therapeutic drug level monitoring
CPT/HCPCS: 36415; 80053; 80061; 82306; 85025

== ENCOUNTER 2022-05-17 08:10 | Day surgery (SDC) | payer MEDICARE, MEDICAID, SELFPAY ==
[2022-05-17] VITALS (7 sets, daily range): BP systolic 103–130; BP diastolic 66–81; PULSE 66–73; RESP 16; TEMP 36.4–36.5; O2SAT 95–100; BMI 49.1
[2022-05-17] MEDS: Lactated Ringers 1,000 ML 15 ML IV (08:45)
--- NOTE | 2022-05-17 09:24 | PCM.HP.BLA ---
History and Physical Date of Admission: 05/17/22 Intake Vital Signs ? 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 Is patient in pain?: Yes Allergies naproxen Adverse Reaction (Verified 04/29/22 12:45) Upset Stomach Medications gabapentin 400 mg capsule 400 mg PO BID 05/22/20 [History Confirmed 04/29/22] alprazolam 0.5 mg tablet 1 mg PO DAILY PRN 04/29/22 [History Confirmed 04/29/22] buspirone 5 mg tablet 5 mg PO BID 04/29/22 [History Confirmed 04/29/22] citalopram 20 mg tablet 40 mg PO DAILY 04/29/22 [History Confirmed 04/29/22] cyclobenzaprine 10 mg tablet 5 mg PO TID PRN muscle spasm 04/29/22 [History] ergocalciferol (vitamin D2) 1,250 mcg (50,000 unit) capsule 1,250 mcg PO 2XW 04/29/22 [History Confirmed 04/29/22] ibuprofen 800 mg tablet 800 mg PO Q6H 04/29/22 [History Confirmed 04/29/22] omeprazole 40 mg capsule,delayed release 40 mg PO DAILY #60 caps 04/29/22 [Rx Confirmed 04/29/22] quetiapine 50 mg tablet 75 mg PO QHS 04/29/22 [History Confirmed 04/29/22] sucralfate 1 gram tablet (Carafate) 1 g PO QACHS #90 tabs 04/29/22 [Rx Confirmed 04/29/22] Is last menstrual period known: No Post menopausal: No Patient : No PFSH Medical History?(Updated 04/29/22 @ 14:[address] Omar Witt MD) Back pain Cervical cancer HPV (human papilloma virus) infection PTSD (post-traumatic stress disorder) Recent surgical procedure on lower extremity Sleep apnea Surgical History?(Updated 09/14/20 @ 11:55 by Gisselle Martini) H/O LEEP H/O oophorectomy History of right salpingo-oophorectomy History of total vaginal hysterectomy (TVH) Family History?(Updated 04/29/22 @ 12:45 by Jing Martinez) Grandfather Lung cancer Cancer ?? ? stomachGrandmother Stomach cancerMother Cervical cancer Hypertension Social History?(Updated 08/28/20 @ 09:[address] Tatiana Hairston MD) adopted:? No household members:? significant other number of children:? 4 current occupational status:? unemployed sexually active:? Yes Smoking Status:? Never smoker alcohol intake:? current alcohol intake frequency: a few times a month substance use type:? does not use what type of physical activity do you participate in:? none seatbelt use:? always do you feel safe at home:? Yes additional social history:? kobe Singh - works through [employer] service Female Reproductive History Menstrual Ab spontaneous: 1 HPI HPI HPI: NITO WILDER, is a 41 F who presents to the office today for rectal bleeding.? The patient reports she is having bright red blood 4-5 times per day.? She also reports she has not had a solid bowel movement in a few months.? She says she has diarrhea a few times a day and mixed with this is bright red blood.? She says she is also having occasional nausea and vomiting.? She also describes left lower quadrant pain. ROS General General: Yes fatigue; No weight change HEENT HEENT: No difficulty swallowing Endo Endocrine: No thyroid disease Musc Musculoskeletal: Yes back problems; No arthritis Cardio Cardiovascular: No pacemaker, heart disease, atrial fibrillation, high blood pressure, heart attack, heart stent, palpitations or chest pain Psych Psychiatric: Yes depression and anxiety Resp Respiratory: Yes shortness of breath, Yes sleep apnea, No cough, No COPD, No asthma and No emphysema Gastro Gastrointestinal: Yes abdominal pain, Yes nausea or vomiting, Yes diarrhea, Yes constipation, Yes blood in stool, Yes acid reflux, No hemorrhoids, No ulcers, No gallbladder problem and No black,tarry stools Misael Hematologic: No blood thinners Exam Const Orientation: alert and oriented x3 HENMT Head: normal to inspection Neck Neck: normal visual inspection and full ROM Chest Chest palpation & inspection: normal inspection of the chest Resp Effort & Inspection: normal respiratory effort Auscultation: clear to auscultation bilaterally Cardio Rate: regular rate Rhythm: regular rhythm GI Inspection: non-distended Palpation: soft and nontender Skin General: no rashes or lesions noted Neuro General: patient alert and patient oriented x3 Extrem General: full ROM Psych Appearance: grossly normal Mental Status: mental status grossly normal Assessment and Plan Assessment and Plan (1) Blood in stool: ?Status:?Acute ?Plan: Patient is having bright red blood in her stool.? I recommend that she have an EGD and colonoscopy and I discussed these with her.? I will also start her on a PPI and Carafate to see if this helps. I explained endoscopy in detail to the patient.? I explained the risks including but not limited to stroke or heart attack with anesthesia, perforation of the GI tract, bleeding, infection.? I explained that any of these could necessitate further emergency surgery.? The patient understands and all questions were answered sufficiently.? The patient wishes to proceed with procedure. Omar Witt MD Pager: [facility] [address] [place] [address] [address] [place] [address] Office: I have re-examined the patient. There are no clinical changes since date of exam.
--- NOTE | 2022-05-17 10:07 | OP.EGD_ITS ---
Patient Name: Kelly Garcia Procedure Date: 05/17/2022 9:32 AM Date of : 1980 Age: 42 Procedure: Upper GI endoscopy Indications: Epigastric abdominal pain, Suspected gastro-esophageal reflux disease Providers: Omar Witt MD Referring MD: Kelly Majano Medicines: Monitored Anesthesia Care Patient Profile: This is a 42 year old female. Refer to note in patient chart for documentation of history and physical. Complications: No immediate complications. Procedure: Pre-Anesthesia Assessment: - Prior to the procedure, a History and Physical was performed, and patient medications and allergies were reviewed. The patient's tolerance of previous anesthesia was also reviewed. The risks and benefits of the procedure and the sedation options and risks were discussed with the patient. All questions were answered, and informed consent was obtained. Prior Anticoagulants: The patient has taken no previous anticoagulant or antiplatelet agents. After reviewing the risks and benefits, the patient was deemed in satisfactory condition to undergo the procedure. After obtaining informed consent, the endoscope was passed under direct vision. Throughout the procedure, the patient's blood pressure, pulse, and oxygen saturations were monitored continuously. The gastroscope was introduced through the mouth, and advanced to the third part of duodenum. The upper GI endoscopy was accomplished without difficulty. The patient tolerated the procedure well. Scope In: 9:40:54 AM Scope Out: 9:42:04 AM Total Procedure Duration Time 0 hours 1 minute 10 seconds Findings: The esophagus was normal. The stomach was normal. The examined duodenum was normal. Impression: - Normal esophagus. - Normal stomach. - Normal examined duodenum. - No specimens collected. Recommendation: - Discharge patient to home. - Resume previous diet. - Continue present medications. Procedure Code(s): --- Professional --- 21839, Esophagogastroduodenoscopy, flexible, transoral; diagnostic, including collection of specimen(s) by brushing or washing, when performed (separate procedure) Diagnosis Code(s): --- Professional --- R10.13, Epigastric pain CPT copyright 2017 [employer]. All rights reserved. The codes documented in this report are preliminary and upon property management coordinator review may be revised to meet current compliance requirements. Omar Witt MD 05/17/2022 10:07:08 AM This report has been signed electronically. Number of Addenda: 0 Note Initiated On: 05/17/2022 9:32 AM
--- NOTE | 2022-05-17 10:08 | OP.CCLET_ITS ---
05/17/2022 Kelly Majano [address] [place] [address] Re : Upper GI endoscopy procedure for Kelly Garcia Dear Dr. Majano This procedure was performed on Tuesday, May 17, 2022. My impressions and recommendations are as follows: Impressions : - Normal esophagus. - Normal stomach. - Normal examined duodenum. - No specimens collected. Recommendations : - Discharge patient to home. - Resume previous diet. - Continue present medications. My findings are described in the full procedure note, which is enclosed. If I can be of further assistance, please feel free to contact me at Doctor phone number(s): , Work: . Sincerely, Omar Witt MD 05/17/2022 10:07:08 AM This report has been signed electronically.
--- NOTE | 2022-05-17 10:11 | OP.CCLET_ITS ---
05/17/2022 Kelly Majano [address] [place] [address] Re : Colonoscopy procedure for Kelly Garcia Dear Dr. Majano This procedure was performed on Tuesday, May 17, 2022. My impressions and recommendations are as follows: Impressions : - The entire examined colon is normal on direct and retroflexion views. - No specimens collected. Recommendations : - Discharge patient to home. - Resume previous diet. - Continue present medications. - Repeat colonoscopy in 10 years for screening purposes. My findings are described in the full procedure note, which is enclosed. If I can be of further assistance, please feel free to contact me at Doctor phone number(s): , Work: . Sincerely, Omar Witt MD 05/17/2022 10:10:36 AM This report has been signed electronically.
--- NOTE | 2022-05-17 10:11 | OP.COLON_ITS ---
Patient Name: Kelly Garcia Procedure Date: 05/17/2022 9:42 AM Date of : 1980 Age: 42 Procedure: Colonoscopy Indications: Rectal bleeding Providers: Omar Witt MD Referring MD: Kelly Majano Medicines: Monitored Anesthesia Care Patient Profile: This is a 42 year old female. Refer to note in patient chart for documentation of history and physical. Last Colonoscopy: none. The patient's first colonoscopy is today. Complications: No immediate complications. Procedure: Pre-Anesthesia Assessment: - Prior to the procedure, a History and Physical was performed, and patient medications and allergies were reviewed. The patient's tolerance of previous anesthesia was also reviewed. The risks and benefits of the procedure and the sedation options and risks were discussed with the patient. All questions were answered, and informed consent was obtained. Prior Anticoagulants: The patient has taken no previous anticoagulant or antiplatelet agents. After reviewing the risks and benefits, the patient was deemed in satisfactory condition to undergo the procedure. After I obtained informed consent, the scope was passed under direct vision. Throughout the procedure, the patient's blood pressure, pulse, and oxygen saturations were monitored continuously. The colonoscope was introduced through the anus and advanced to the cecum, identified by appendiceal orifice and ileocecal valve. The colonoscopy was performed without difficulty. The patient tolerated the procedure well. The quality of the bowel preparation was good. Scope In: 9:44:38 AM Scope Withdrawal Time 0 hours 5 minutes 3 seconds Scope Out: 9:57:08 AM Total Procedure Duration Time 0 hours 12 minutes 30 seconds Findings: The entire examined colon appeared normal on direct and retroflexion views. Impression: - The entire examined colon is normal on direct and retroflexion views. - No specimens collected. Recommendation: - Discharge patient to home. - Resume previous diet. - Continue present medications. - Repeat colonoscopy in 10 years for screening purposes. Procedure Code(s): --- Professional --- 31350, Colonoscopy, flexible; diagnostic, including collection of specimen(s) by brushing or washing, when performed (separate procedure) Diagnosis Code(s): --- Professional --- K62.5, Hemorrhage of anus and rectum CPT copyright 2017 [employer]. All rights reserved. The codes documented in this report are preliminary and upon sack keeper review may be revised to meet current compliance requirements. Omar Witt MD 05/17/2022 10:10:36 AM This report has been signed electronically. Number of Addenda: 0 Note Initiated On: 05/17/2022 9:42 AM
== END 2022-05-17 10:46 | disposition home or self-care (01) ==
LOC: EN 08:13 → AC 08:15
PROVIDERS: PCP Family Medicine; Referring Provider Family Medicine; Visit Provider Surgery
PROC: 0DJD8ZZ Inspection of Lower Intestinal Tract, Via Natural or Artificial Opening Endoscopic (ICD-10-PCS; CPT 45378; principal; 2022-05-17 09:40)
DX: K62.5 Hemorrhage of anus and rectum (principal); K21.9 Gastro-esophageal reflux disease without esophagitis; R19.7 Diarrhea, unspecified; R11.2 Nausea with vomiting, unspecified; R10.32 Left lower quadrant pain; Z79.899 Other long term (current) drug therapy
CPT/HCPCS: 45378; 43235; J7120; J2405

== ENCOUNTER → 2022-08-26 | Outpatient (CLI) | payer MEDICARE, SELFPAY ==
[2022-08-26 17:23] LABS: Absolute Lymphocyte Count 2.66 X10^3/uL (0.83-4.51); Absolute Neutrophil Count 3.5 X10^3/uL (2.0-7.7); Basophil# 0.03 X10^3/uL; Basophil% 0.4 % (0-1); Eosinophil# 0.16 X10^3/uL; Eosinophils% 2.4 % (0-5); Hematocrit 39.6 % (37-47); Hemoglobin 12.9 g/dL (12.0-15.0); Lymphocyte # 2.66 X10^3/ul (0.83-4.51); Lymphocyte % 39.5 % (19-41); Mean Corp Hgb Conc 32.6 g/dL (32-36); Mean Corpuscular Hgb 27.1 pg (27.0-32.0); Mean Corpuscular Volume 83.2 fL (81-99); Mean Platelet Vol. 12.2 fl (6.2-12.0); Monocyte# 0.41 X10^3/uL; Monocyte% 6.1 % (0-10); NRBC Flagged by Analyzer 0 % (0-5); Neutrophil # 3.45 X10^3/uL (2.7-7.7); Neutrophil % 51.3 % (47-70); Platelet Count 244 K/mm3 (150-450); RBC Distribution Width CV 14.3 % (11.6-14.6); RBC Distribution Width SD 42.9 fl (35.1-43.9); Red Blood Count 4.76 M/mm3 (4.2-5.4); White Blood Count 6.7 K/mm3 (4.4-11.0)
[2022-08-26 17:51] LABS: Burr Cells 6.7; Erythrocyte Sedimentation Rate 25 mm/hr (0-30)
[2022-08-26 18:02] LABS: ALB/GLOB Ratio 1.1 RATIO (0.9-2.4); AST(SGOT) 19 U/L (15-37); Alanine Aminotransfer ALT/SGPT 44 U/L (13-56); Albumin, Serum 3.6 g/dL (3.2-5.0); Alkaline Phosphatase 91 U/L (45-117); Anion Gap 6 (5-15); BUN 7 mg/dL (7-18); BUN/Creat Ratio 9.5 RATIO (10-20); CRP 9.98 mg/L (0.0-3.0); Calcium,Total 8.8 mg/dL (8.5-10.1); Chloride 106 mmol/L (98-107); Creatinine, Serum 0.73 mg/dL (0.55-1.02); EST Glomerular Filtration Rate 93 mL/min (>60); Est Glom Filt Rate - Afr Amer 112 mL/min (>60); Globulin 3.4 g/dL (2.2-4.2); Glucose 86 mg/dL (74-106); LDH 214 U/L (84-246); Potassium 3.8 mmol/L (3.5-5.1); Sodium Level 139 mmol/L (136-145)
[2022-08-28 15:08] LABS: Anti-Centromere B Ab <0.2 AI (0.0-0.9); Anti-Chromatin <0.2 AI (0.0-0.9); Anti-Jo <0.2 AI (0.0-0.9); Anti-Scleroderma-70 AB <0.2 AI (0.0-0.9); Endomysial Antibody IgA Negative (Negative); RNP Ab <0.2 AI (0.0-0.9); SJOGREN'S Anti-SS-A test < 0.2 AI (0.0-0.9); SJOGREN'S Anti-SS-B test < 0.2 AI (0.0-0.9); Smith Ab <0.2 AI (0.0-0.9)
[2022-08-30 06:08] LABS: Albumin 4.1 g/dL (2.9-4.4); Alpha-1-Globulins 0.2 g/dL (0.0-0.4); Alpha-2-Globulins 0.6 g/dL (0.4-1.0); Cytoplasmic Ab (C-ANCA) <1:20 titer (Neg:<1:20); Gamma Globulin 0.8 g/dL (0.4-1.8); Immunoglobulin A 345 mg/dL (87-352); Immunoglobulin E 9 IU/mL (6-495); Immunoglobulin G 796 mg/dL (586-1602); Immunoglobulin M 169 mg/dL (26-217); PROEL- TOTAL PROTEIN 6.9 g/dL (6.0-8.5)
[2022-08-30 13:26] LABS: Anti-dsDNA Ab 2 IU/mL (0-9)
[2022-08-30 13:27] LABS: Immunoglobulin A 337 mg/dL (87-352); t-Transglutaminase IgA 3 U/mL (0-3)
[2022-08-30 13:35] LABS: IMMUNOFIXATION RESULT,S Comment: (.); Perinuclear Ab (P-ANCA) <1:20 titer (Neg:<1:20)
== END | disposition home or self-care (01) ==
PROVIDERS: PCP Family Medicine; Referring Provider Internal Medicine Gastroenterology; Visit Provider Internal Medicine Gastroenterology
DX: R19.8 Other specified symptoms and signs involving the digestive system and abdomen (principal); K62.5 Hemorrhage of anus and rectum
CPT/HCPCS: 36415; 80053; 82784; 82785; 83516; 83615; 84165; 85025; 85652; 86140; 86225; 86235; 86255; 86256; 86334

== ENCOUNTER → 2022-09-05 | Outpatient (CLI) | payer MEDICARE, SELFPAY ==
--- NOTE | 2022-09-05 17:18 | CT_ITS ---
STUDY: CT ABDOMEN AND PELVIS WITH CONTRAST REASON FOR EXAM: Female, 42 years old. GI bleeding, Rectal bleeding, reoccurring yeast infections. History of cervical cancer, partial cervicectomy, TVH, right oophorectomy. RADIATION DOSAGE (If Supplied By Facility): CTDIvol = ( 16.89 ) mGy, DLP = ( 1251.08 ) mGycm TECHNIQUE: Transaxial images were obtained from the dome of the diaphragm to the symphysis pubis with oral contrast. IV 100mL Isovue-300 was administered. Sagittal and coronal images were reconstructed. Individualized dose optimization techniques were used for this CT. COMPARISON: None. FINDINGS: The visualized lung bases are unremarkable. The visualized portions of the heart are within normal limits. There is hepatomegaly with diffuse hepatic enlargement. There is 2.8 cm hypodense mass in the right lobe Normal gallbladder and extrahepatic biliary system. Normal spleen. Normal pancreas. Normal bilateral adrenal glands. Normal right kidney. Normal left kidney. No hydronephrosis. Normal visualized stomach. Normal small intestine. There are a few colonic diverticula consistent with diverticulosis. The appendix is visualized and appears normal. Normal abdominal aorta. Normal inferior vena cava. Normal retroperitoneum. Normal urinary bladder. There is absence of the uterus consistent with a prior hysterectomy. There is 2.2 cm right adnexal cyst. There is no free fluid in the abdomen or pelvis. Normal abdominal wall. Normal osseous structures. CT/Abdomen/Pelvis WITH Contrast IMPRESSION: Colonic diverticulosis. No obstruction or abscess. Hepatomegaly. Nonspecific hypodense mass. Consider ultrasound or short-term follow-up CT and/or MRI for further evaluation. Electronically Signed: Jason Amaya MD at 22:18 EST ,
== END | disposition home or self-care (01) ==
LOC: CT 17:17
PROVIDERS: PCP Family Medicine; Visit Provider Internal Medicine Gastroenterology
DX: K92.2 Gastrointestinal hemorrhage, unspecified (principal)
CPT/HCPCS: 74177; Q9967; A4216

== ENCOUNTER 2022-09-30 13:08 | Outpatient (CLI) | payer MEDICARE, SELFPAY ==
[2022-10-03 21:46] LABS: AFP, Tumor Marker 2.7 ng/mL (0.0-6.4); CA 15-3 10.6 U/mL (0.0-25.0); Cancer Antigen 125 2303 6.8 U/mL (0.0-38.1); Carbohydrate Ag 19-9 2261 7 U/mL (0-35); Carcinoembryonic Antigen 1.5 ng/mL (0.0-4.7)
== END 2022-09-30 23:59 | disposition home or self-care (01) ==
LOC: LAB 13:11
PROVIDERS: PCP Family Medicine; Referring Provider Internal Medicine Gastroenterology; Visit Provider Internal Medicine Gastroenterology
DX: K76.9 Liver disease, unspecified (principal); R19.8 Other specified symptoms and signs involving the digestive system and abdomen; R19.7 Diarrhea, unspecified; K92.1 Melena
CPT/HCPCS: 36415; 82105; 82378; 86300; 86301; 86304

== ENCOUNTER → 2022-10-21 | Outpatient (CLI) | payer MEDICARE, MEDICAID, SELFPAY ==
--- NOTE | 2022-10-21 10:55 | MRI_ITS ---
STUDY: MRI ABDOMEN WITH AND WITHOUT CONTRAST REASON FOR EXAM: Female, 42 years old. liver lesion, f/u to CT, rectal bleeding TECHNIQUE: Standardized fat and water weighted pulse sequences were obtained in all 3 orthogonal planes post contrast administration. IV 19ml Clariscan was administered for the contrast portion of the examination. COMPARISON: CT 09/05/2022 FINDINGS: Base of the chest is unremarkable. Hypointense T1 and hyperintense T2 lesion of the right hepatic lobe on image 7 of series 5 correlates to a hypodense lesion in prior CT. Postcontrast images demonstrate expected peripheral nodular enhancement on later images compatible with benign hemangioma. No solid hepatic mass identified. Mild loss of signal dropout diffusely throughout the liver compatible with hepatic steatosis. Normal gallbladder and extrahepatic biliary system. Normal spleen. Normal pancreas. Normal bilateral adrenal glands. Normal right kidney. Normal left kidney. Visualized hollow viscus structures are normal. Normal abdominal aorta. Normal inferior vena cava. Normal retroperitoneum. There is a small umbilical hernia containing fat. No bone marrow edema. MRI/MRI Abd WITH and W/O Contrast IMPRESSION: 1. Hepatic hemangioma (correlating to CT findings). ACR White Paper guidelines (Candace, et al. JACR 2017; 14(11):3652-5633.) suggest no follow-up is necessary. 2. Mild hepatic steatosis. Electronically Signed: Josué Monae (Brooks), at 13:15 EST ,
== END | disposition home or self-care (01) ==
LOC: MRI 10:17
PROVIDERS: PCP Family Medicine; Referring Provider Internal Medicine Gastroenterology; Visit Provider Internal Medicine Gastroenterology
DX: K76.9 Liver disease, unspecified (principal)
CPT/HCPCS: 74183; A9575; A4216

== ENCOUNTER → 2022-11-28 | Outpatient (CLI) | payer MEDICARE, MEDICAID, SELFPAY ==
--- NOTE | 2022-11-28 09:14 | US_ITS ---
STUDY: ABDOMINAL ULTRASOUND - ELASTOGRAPHY REASON FOR VISIT: Female, 42 years old. Fatty infiltration of the liver. TECHNIQUE: Liver stiffness measurements were obtained on a Portr RS 85 ultrasound machine using a CA 1-7 probe following the SRU guidelines. 3 measurements were obtained using a 2-D-SWE method. TheIQR/M was 25 % suggesting a quality data set. TECHNICAL QUALITY: Adequate. COMPARISON: Comparison is made with prior study done earlier today. FINDINGS: Liver: Fatty infiltration of the liver. Median liver stiffness measured 10.9 kPa. US/Elastography Parenchyma/Organ IMPRESSION: Liver stiffness measures 10.9 kPa compatible with F2-F3 (Mild to moderate liver fibrosis) Metavir score. Electronically Signed: Nakul Valladares MD at 15:15 EST ,
--- NOTE | 2022-11-28 09:14 | US_ITS ---
STUDY: ABDOMINAL ULTRASOUND - RIGHT UPPER QUADRANT REASON FOR VISIT: Female, 42 years old fatty infiltration of the liver. History of liver hemangioma. TECHNIQUE: Ultrasound evaluation of the right upper quadrant was performed with real-time and static eldridge-scale imaging. TECHNICAL QUALITY: Adequate. COMPARISON: None. FINDINGS: Liver: The liver measures 17 cm. There is increased echogenicity consistent with fatty infiltration. The bile ducts are within normal limits. There is hepatic color flow. The direction of portal flow is hepatopetal. There is a 2.7 cm x 2.8 cm x 2.3 cm hypoechoic nodule with posterior acoustical enhancement in the right lobe of the liver. On the CT scan, this most likely presents a hemangioma. Gallbladder: Normal distended gallbladder. The gallbladder wall measures 1.8 mm. There is a negative sonographic Boogie''s sign. There is no pericholecystic fluid. There are no gallstones. Common Bile Duct (C.B.D.): The common bile duct measures 3.7 mm. Pancreas: Normal size of the head, body and tail of the pancreas. There is normal echogenicity of the pancreas. There is no demonstrated pancreatic mass or cyst. Right Kidney: Normal size of the right kidney. The right kidney measures 11 cm x 4.5 cm x 4 cm. Normal renal cortex. The right cortex measures 1.3 cm. There is no demonstrated renal mass or cyst. There is no right hydronephrosis. US/Abdomen Limited IMPRESSION: Fatty infiltration of the liver. Findings suggestive of an hemangioma in the right lobe of the liver. Electronically Signed: Nakul Valladares MD at 15:13 EST ,
== END | disposition home or self-care (01) ==
LOC: US 09:10
PROVIDERS: PCP Family Medicine; Referring Provider Internal Medicine Gastroenterology; Visit Provider Internal Medicine Gastroenterology
DX: K76.0 Fatty (change of) liver, not elsewhere classified (principal)
CPT/HCPCS: 76705; 76981

== ENCOUNTER → 2022-12-16 | Outpatient (CLI) | payer MEDICARE, MEDICAID, SELFPAY ==
[2022-12-16 13:08] LABS: Ferritin 75 ng/mL (8-252)
[2022-12-16 13:10] LABS: Ammonia < 10.0 umol/L (11-32)
[2022-12-16 13:15] LABS: Hemoglobin A1c 5.2 % (3.8-5.6)
[2022-12-17 16:32] LABS: Anti-Mitochondrial AB <20.0 Units (0.0-20.0)
[2022-12-18 02:07] LABS: Angiotensin Convert Enzyme 45 U/L (14-82); Ceruloplasmin 30.6 mg/dL (19.0-39.0)
[2022-12-18 10:01] LABS: Anti-Smooth Muscle ABS 9 Units (0-19); Copper, Serum or Plasma 137 ug/dL (80-158); Haptoglobin 253 mg/dL (42-296)
== END | disposition home or self-care (01) ==
LOC: LAB 12:17
PROVIDERS: PCP Family Medicine; Referring Provider Internal Medicine Gastroenterology; Visit Provider Internal Medicine Gastroenterology
DX: K76.0 Fatty (change of) liver, not elsewhere classified (principal)
CPT/HCPCS: 36415; 82140; 82164; 82390; 82525; 82728; 83010; 83036; 83516

== ENCOUNTER → 2022-12-20 | Outpatient (CLI) | payer MEDICARE, MEDICAID, SELFPAY ==
[2022-12-24 11:13] LABS: Calprotectin, Stool 36 ug/g (0-120)
[2022-12-26 14:22] LABS: Pancreatic Elastase, Fecal < 50 (>200)
== END | disposition home or self-care (01) ==
PROVIDERS: PCP Family Medicine; Referring Provider Internal Medicine Gastroenterology; Visit Provider Internal Medicine Gastroenterology
DX: K62.5 Hemorrhage of anus and rectum (principal); R19.8 Other specified symptoms and signs involving the digestive system and abdomen; R19.7 Diarrhea, unspecified; K58.9 Irritable bowel syndrome, unspecified
CPT/HCPCS: 82653; 83630; 83993; 87177; 87209; 87329; 87493; 87506

== ENCOUNTER 2024-05-07 12:21 | Outpatient (CLI) | payer MEDICARE, MEDICAID, SELFPAY ==
[2024-05-07 12:55] LABS: Absolute Lymphocyte Count 2.03 X10^3/uL (0.83-4.51); Basophil# 0.02 X10^3/uL; Basophil% 0.4 % (0-1); Eosinophils% 1.8 % (0-5); Hematocrit 40.9 % (37-47); Hemoglobin 13.3 g/dL (12.0-15.0); Lymphocyte # 2.03 X10^3/ul (0.83-4.51); Lymphocyte % 37.3 % (19-41); Mean Corp Hgb Conc 32.5 g/dL (32-36); Mean Corpuscular Hgb 28.1 pg (27.0-32.0); Mean Corpuscular Volume 86.3 fL (81-99); Mean Platelet Vol. 11.8 fl (6.2-12.0); Monocyte# 0.28 X10^3/uL; Monocyte% 5.1 % (0-10); NRBC Flagged by Analyzer 0 % (0-5); Neutrophil # 2.99 X10^3/uL (2.7-7.7); Platelet Count 231 K/mm3 (150-450); RBC Distribution Width CV 13.7 % (11.6-14.6); RBC Distribution Width SD 42.9 fl (35.1-43.9); Red Blood Count 4.74 M/mm3 (4.2-5.4); White Blood Count 5.4 K/mm3 (4.4-11.0)
[2024-05-07 13:22] LABS: Erythrocyte Sedimentation Rate 8 mm/hr (0-30)
[2024-05-07 13:34] LABS: Vitamin B12 304 pg/mL (211-911)
[2024-05-07 13:39] LABS: CRP 2.99 mg/L (0.0-3.0); LDH 172 U/L (84-246); T4 Free Direct 0.85 ng/dL (0.76-1.46); Thyroid Stim Hormone (TSH) 0.945 uIU/mL (0.358-3.740)
[2024-05-13 16:10] LABS: Beef <0.10 kU/L (Class 0); Chocolate <0.10 kU/L (Class 0); Codfish <0.10 kU/L (Class 0); Corn <0.10 kU/L (Class 0); Egg, Whole <0.10 kU/L (Class 0); Milk (Cow) <0.10 kU/L (Class 0); Mussels <0.10 kU/L (Class 0); Peanut <0.10 kU/L (Class 0); Pork <0.10 kU/L (Class 0); Salmon <0.10 kU/L (Class 0); Shrimp <0.10 kU/L (Class 0); Soybean <0.10 kU/L (Class 0); Tuna <0.10 kU/L (Class 0); Wheat <0.10 kU/L (Class 0)
[2024-05-19 18:07] LABS: ALDOSTERONE/RENIN RATIO 3.1 (0.0-30.0); Aldosterone, Serum 6.3 ng/dL (0.0-30.0); Cytoplasmic Ab (C-ANCA) <1:20 titer (Neg:<1:20); Endomysial Antibody IgA Negative (Negative); Immunoglobulin A 310 mg/dL (87-352); Perinuclear Ab (P-ANCA) <1:20 titer (Neg:<1:20); Renin, Plasma 2.022 ng/mL/hr (0.167-5.380); t-Transglutaminase IgA 2 U/mL (0-3)
== END 2024-05-07 23:59 | disposition home or self-care (01) ==
PROVIDERS: PCP Family Medicine; Referring Provider Internal Medicine Gastroenterology; Visit Provider Internal Medicine Gastroenterology
DX: K76.0 Fatty (change of) liver, not elsewhere classified (principal); F41.9 Anxiety disorder, unspecified; F32.A Depression, unspecified
CPT/HCPCS: 36415; 82088; 82533; 82607; 82784; 83516; 83615; 84244; 84439; 84443; 84481; 85025; 85652; 86003; 86005; 86140; 86255; 86256

== ENCOUNTER → 2024-05-20 | Outpatient (CLI) | payer MEDICARE, MEDICAID, SELFPAY ==
--- NOTE | 2024-05-20 14:20 | BI_ITS ---
MAMMOGRAPHY - BILATERAL SCREENING REASON FOR EXAM: Female, 44 years old. Routine annual screening examination. PERTINENT HISTORY: Grandmother with breast cancer. TECHNIQUE: Digital bilateral breast mary (3D mammographic acquisition) in the CC and MLO projections. 2-D mediolateral oblique (MLO) and craniocaudad (CC) views of both breasts were obtained. CAD: Full Field Digital Mammography with Computer Added Detection was performed. COMPARISON: None. Baseline examination. FINDINGS: Breast Composition: The breasts are heterogeneously dense, which may obscure small masses. There are no dominant masses or suspicious calcifications. No other significant abnormalities are identified. BI/SCRN MAMM (CAD)W/MARY BILAT IMPRESSION: Negative screening mammogram. Yearly followup mammogram recommended. (A) ASSESSMENT CATEGORY: BIRADS Category 1: Negative. A letter regarding these results will be sent to the patient by the facility within 30 days. Approximately 10% of breast cancers are not detected by mammography. A normal mammogram should not delay biopsy of a clinically suspicious abnormality. [id number] Electronically Signed: Nakul Valladares MD at 15:08 EDT ,
== END | disposition home or self-care (01) ==
LOC: OPBI 14:18
PROVIDERS: PCP Family Medicine; Referring Provider Family Medicine; Visit Provider Family Medicine
DX: Z12.31 Encounter for screening mammogram for malignant neoplasm of breast (principal)
CPT/HCPCS: 77063; 77067

== ENCOUNTER → 2025-01-15 | Outpatient (CLI) | payer MEDICARE, MEDICAID, SELFPAY ==
[2025-01-18 14:08] LABS: Giardia Lamblia, Stool EIA Negative (Negative)
[2025-01-18 16:08] LABS: Calprotectin, Stool 10 ug/g (0-120)
== END | disposition home or self-care (01) ==
PROVIDERS: PCP Family Medicine; Referring Provider Student in an Organized Health Care Education/Training Program; Visit Provider Student in an Organized Health Care Education/Training Program
DX: R19.5 Other fecal abnormalities (principal); R19.7 Diarrhea, unspecified; K58.9 Irritable bowel syndrome, unspecified
CPT/HCPCS: 82653; 83630; 83993; 87177; 87209; 87329; 87493; 87506

== ENCOUNTER → 2025-03-15 | Outpatient (CLI) | payer MEDICARE, MEDICAID, SELFPAY ==
--- NOTE | 2025-03-15 17:30 | CT_ITS ---
PROCEDURE: ABDOMEN/PELVIS WITH CONTRAST 03/15/2025 REASON FOR EXAM: ABDOMINAL PAIN TECHNIQUE: ABDOMEN/PELVIS WITH CONTRAST Coronal and Sagittal reconstruction series were provided. Contrast: Isovue-300 VOLUME: 98 mL One or more dose reduction techniques were used (e.g., Automated exposure control, adjustment of the mA and/or kV according to patient size, use of iterative reconstruction technique. RADIATION DOSE SUMMARY: CTDlvol: 15.4 mGy DLP: 833.99 mGycm COMPARISON: 09/05/2022. FINDINGS: The visualized lung bases are unremarkable. Normal liver. 3.0 x 3.0 cm cyst is seen in the right hepatic lobe. Normal gallbladder and extrahepatic biliary system. Normal spleen. Normal pancreas. Normal bilateral adrenal glands. Normal size of the right kidney. There is no right renal mass. There are no right renal calculi. There is no right hydronephrosis. Normal visualized right ureter. Normal size of the left kidney. There is no left renal mass. There are no left renal calculi. There is no left hydronephrosis. Normal visualized left ureter. Normal visualized stomach. Normal small intestine. Normal colon. The appendix is visualized and appears normal. There is no demonstrated peritoneal fluid. Normal abdominal aorta. Normal inferior vena cava. Normal retroperitoneum. Normal urinary bladder. There is no pelvic mass lesion or lymphadenopathy. There is no pelvic fluid. 4.0 x 2.8 cm septated cyst is seen in the right ovary. 1.8 x 1.0 cm is seen in the left ovary. The uterus is absent. Normal abdominal wall. Normal osseous structures. CT/Abdomen/Pelvis WITH Contrast IMPRESSION: Benign liver cyst. Bilateral ovarian cysts. Status post hysterectomy. No acute process. Reading Location: [place] [id number]
== END | disposition home or self-care (01) ==
LOC: CT 17:27
PROVIDERS: PCP Family Medicine; Referring Provider Student in an Organized Health Care Education/Training Program; Visit Provider Student in an Organized Health Care Education/Training Program
DX: R10.9 Unspecified abdominal pain (principal)
CPT/HCPCS: 74177; Q9967